=== PATIENT | male | born 1935 | race Two or more races ===

== ENCOUNTER 2018-07-28 18:33 | Emergency (ER) | payer MEDICARE, OTHER ==
[~2018-07-28] VITALS: Ht 170.2 cm; Wt 62.6 kg
[~2018-07-28 18:33] MED LIST: ASPIRIN EC325 MG ORAL; FAMOTIDINE10 MG ORAL; FAMOTIDINE20 MG ORAL; LEVOTHYROXINE100 MCG ORAL; LEVOTHYROXINE50 MCG ORAL; PLAVIX75 MG ORAL; PRAVASTATIN SOD80 M1 PO; UNOBMED
[2018-07-28] MEDS ORDERED: Mylanta II UD 30ml ORAL ONE (18:45)
--- NOTE | 2018-07-28 18:54 | Emergency Room Report ---
History of Present Illness General Chief Complaint: Chest Pain Source: Patient, Family Member Present Illness HPI Patient is an 82-year-old male brought in by EMS after increased right-sided chest discomfort. Patient a prior history of double bypass surgery done at [facility]. Patient had onset of symptoms after eating. He reported this improved after belching. Patient was noted to be hitting the right side of his chest due to discomfort. Patient had prior history of cardiac surgery at [facility]. He is not currently taking any anticoagulation. He had not been vomiting or having any diarrhea. He was noted to have some baseline difficulty with hearing. Patient states pain is currently gone. Allergies: Coded Allergies: No Known Allergies (Unverified , 11/09/12) Patient History Past Medical History: see triage record, CAD Past Surgical History: CABG Reviewed Nursing Documentation: PMH: Agreed; PSxH: Agreed Nursing Documentation-PMH Hx Cardiac Problems: Yes - HEART SURGERY 2011 Hx Hypertension: No - hyperlipidemia Hx Pacemaker: Yes Hx Cancer: No Hx Gastrointestinal Problems: Yes Hx Neurological Problems: No Review of Systems All Other Systems: negative except mentioned in HPI Physical Exam Vital Signs Date Time Temp Pulse Resp B/P (MAP) Pulse Ox O2 Delivery O2 Flow Rate FiO2 07/28/18 18:33 98.2 72 16 120/64 98 Room Air Sp02 EP Interpretation: reviewed, normal General Appearance: normal inspection, well appearing, no apparent distress, alert, GCS 15, non-toxic Head: atraumatic ENT: normal ENT inspection, hearing grossly normal, normal voice Neck: normal inspection, full range of motion, supple, no bony tend Respiratory: normal inspection, lungs clear, normal breath sounds, no respiratory distress, no retraction, no wheezing Cardiovascular #1: regular rate, rhythm, no edema Gastrointestinal: normal inspection, normal bowel sounds, non tender, soft, no guarding, no hernia Genitourinary: no CVA tenderness Musculoskeletal: normal inspection, back normal, normal range of motion Neurologic: normal inspection, alert, oriented x3, responsive, outside cutter hand III-XII nml as tested, speech normal Psychiatric: normal inspection, judgement/insight normal, mood/affect normal Skin: normal inspection, normal color, no rash Medical Decision Making Diagnostic Impression: Primary Impression: Chest pain Additional Impressions: Right upper lobe consolidation CAD (coronary artery disease) ER Course Patient presented for chest pain. Differential diagnosis included but was not limited to acute coronary syndrome, pulmonary embolism, pneumonia, aortic dissection, shingles, pneumothorax, aortic dissection, esophageal rupture, pericarditis. Because of complexity of patient's case laboratory testing and imaging studies were ordered. EKG interpreted by me showed normal sinus rhythm with a rate of [address] or T wave changes. Laboratory testing was unremarkable. Patient was noted to have prior history of coronary artery disease. D-dimer was noted to be positive. CT angiogram of the chest was ordered to evaluate for possible pulmonary embolism. CT of chest read by radiology showed no evidence of pulmonary embolism with right upper lobe inflammatory versus infection. Patient was given IV antibiotics. He was noted to have slightly elevated white blood count. Dr. Albert was contacted for [facility]. Labs Test 07/28/18 18:50 07/28/18 19:12 White Blood Count 12.5 K/UL (4.8-10.8) Red Blood Count 4.49 M/UL (4.70-6.10) Hemoglobin 14.6 G/DL (14.2-18.0) Hematocrit 43.3 % (42.0-52.0) Mean Corpuscular Volume 97 FL (80-99) Mean Corpuscular Hemoglobin 32.5 PG (27.0-31.0) Mean Corpuscular Hemoglobin Concent 33.7 G/DL (32.0-36.0) Red Cell Distribution Width 11.9 % (11.6-14.8) Platelet Count 201 K/UL (150-450) Mean Platelet Volume 4.6 FL (6.5-10.1) Neutrophils (%) (Auto) 70.2 % (45.0-75.0) Lymphocytes (%) (Auto) 15.9 % (20.0-45.0) Monocytes (%) (Auto) 7.1 % (1.0-10.0) Eosinophils (%) (Auto) 6.2 % (0.0-3.0) Basophils (%) (Auto) 0.6 % (0.0-2.0) Sodium Level 139 MMOL/L (136-145) Potassium Level 3.7 MMOL/L (3.5-5.1) Chloride Level 101 MMOL/L (98-107) Carbon Dioxide Level 32 MMOL/L (21-32) Anion Gap 7 mmol/L (5-15) Blood Urea Nitrogen 30 mg/dL (7-18) Creatinine 0.9 MG/DL (0.55-1.30) Estimat Glomerular Filtration Rate mL/min (>60) Glucose Level 105 MG/DL (74-106) Calcium Level 8.7 MG/DL (8.5-10.1) Total Bilirubin 0.3 MG/DL (0.2-1.0) Aspartate Amino Transf (AST/SGOT) 34 U/L (15-37) Alanine Aminotransferase (ALT/SGPT) 74 U/L (12-78) Alkaline Phosphatase 151 U/L (46-116) Total Creatine Kinase 45 U/L (26-308) Creatine Kinase MB 1.4 NG/ML (0.0-3.6) Creatine Kinase MB Relative Index 3.1 Troponin I 0.023 ng/mL (0.000-0.056) Pro-B-Type Natriuretic Peptide 164 pg/mL (0-125) Total Protein 6.8 G/DL (6.4-8.2) Albumin 3.2 G/DL (3.4-5.0) Globulin 3.6 g/dL Albumin/Globulin Ratio 0.9 (1.0-2.7) Lipase 275 U/L (73-393) D-Dimer 3.21 mg/L FEU (0.00-0.49) EKG Diagnostic Results Rate: bradycardiac Rhythm: NSR ST Segments: no acute changes Last Vital Signs Date Time Temp Pulse Resp B/P (MAP) Pulse Ox O2 Delivery O2 Flow Rate FiO2 07/28/18 18:33 98.2 72 16 120/64 98 Room Air Status: improved [facility] Condition: Stable Phuc Lopez MD Jul 28, 2018 18:54
[2018-07-28 19:06] VITALS: BP 124/68
[2018-07-28 19:25] LABS: BASOPHILS % (AUTO) 0.6 % (0.0-2.0); EOSINOPHILS % (AUTO) 6.2 % (0.0-3.0); HEMATOCRIT 43.3 % (42.0-52.0); HEMOGLOBIN 14.6 G/DL (14.2-18.0); LYMPHOCYTES % (AUTO) 15.9 % (20.0-45.0); MEAN CORPUSCULAR VOLUME 97 FL (80-99); MONOCYTES % (AUTO) 7.1 % (1.0-10.0); NEUTROPHILS % (AUTO) 70.2 % (45.0-75.0); PLATELET COUNT 201 K/UL (150-450); RED BLOOD COUNT 4.49 M/UL (4.70-6.10); RED CELL DISTRIBUTION WIDTH 11.9 % (11.6-14.8); WHITE BLOOD COUNT 12.5 K/UL (4.8-10.8)
[2018-07-28 19:31] LABS: ANION GAP 7 mmol/L (5-15); BLOOD UREA NITROGEN 30 mg/dL (7-18); CALCIUM 8.7 MG/DL (8.5-10.1); CARBON DIOXIDE 32 MMOL/L (21-32); CHLORIDE 101 MMOL/L (98-107); CREATININE 0.9 MG/DL (0.55-1.30); POTASSIUM 3.7 MMOL/L (3.5-5.1); SODIUM 139 MMOL/L (136-145)
[2018-07-28 19:45] LABS: ALANINE AMINOTRANSFERASE 74 U/L (12-78); ALBUMIN 3.2 G/DL (3.4-5.0); ALBUMIN/GLOBULIN RATIO 0.9 (1.0-2.7); ALKALINE PHOSPHATASE 151 U/L (46-116); ASPARTATE AMINO TRANSFERASE 34 U/L (15-37); BILIRUBIN,TOTAL 0.3 MG/DL (0.2-1.0); CKMB 1.4 NG/ML (0.0-3.6); CREATINE KINASE 45 U/L (26-308)
[2018-07-28 20:39] VITALS: BP 104/61
[2018-07-28] MEDS ORDERED: Isovue-370 150ml vial INJ PRN (20:45)
[2018-07-28] MEDS ORDERED: cefTRIAXone 1 GM in NS 55 ML IVPB ONE (21:45)
[2018-07-28 22:58] VITALS: BP 116/61
[2018-07-29 00:47] VITALS: BP 101/55
[2018-07-29 01:36] VITALS: BP 101/55
--- NOTE | 2018-07-29 09:34 | Diagnostic Imaging Report ---
ndication: Chest pain Technique: IV administration nonionic contrast. Spiral acquisitions obtained from the lung bases to the lung apices. Multiplanar and 3-D reconstructions were generated. Total dose length product 860.1 mGycm. CTDIvol(s) 23.9 mGy. Dose reduction achieved using automated exposure control Comparison: none Findings: There is some image degradation due to respiratory motion artifact. Small filling defects are seen at the orifice of the right superior segment lower lobe pulmonary artery and within a left upper lobe segmental branch. There may be one or more right sided basilar segment pulmonary emboli as well. No pulmonary artery dilatation or right ventricular dilatation demonstrated. The there is fusiform ectasia, bordering on aneurysmal dilatation of the ascending thoracic aorta, which measures up to 4.5 cm in diameter. No evidence of dissection. There is variant aortic arch anatomy, with common origin of the right brachiocephalic and left common carotid arteries. The descending thoracic aorta is normal in caliber as are the proximal upper abdominal visceral vessels. Motion artifact limits evaluation of the lung window images. No definite infiltrates, effusions, masses, nodules, or congestion. There is some apical parenchymal scarring on the right and some focal pleural thickening on the left. The heart is borderline enlarged. No pericardial effusion. There is evidence of prior CABG. No mediastinal or hilar mass or adenopathy. No axillary or chest wall mass or adenopathy. The included upper abdominal anatomy is unremarkable Impression: Positive for bilateral small pulmonary emboli as described. This represents a discrepancy from [facility] preliminary report. Critical value discrepant findings phoned to Dr. Avila at the time of interpretation, as well as communicated to [facility] via their website. 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
--- NOTE | 2018-07-29 14:07 | Diagnostic Imaging Report ---
Indication: Chest pain Technique: One view of the chest Comparison: 09/02/2015 Findings: Cardiac valve prosthesis and CABG clips again demonstrated. The lungs and pleural spaces are clear. The heart is borderline enlarged. Impression: No acute process Borderline cardiomegaly
--- NOTE | 2018-07-29 19:39 | Cardiology Report ---
APPROVED REPORT EKG Measurement Heart [id number] Sinus bradycardia with sinus arrhythmia Otherwise normal ECG
== END 2018-07-29 01:38 | disposition short-term general hospital (02) ==
LOC: EDBD 18:33 → EMR 19:10
DX: R07.9 Chest pain, unspecified (principal); I25.10 Atherosclerotic heart disease of native coronary artery without angina pectoris; E78.5 Hyperlipidemia, unspecified; Z95.0 Presence of cardiac pacemaker; Z95.1 Presence of aortocoronary bypass graft; R00.1 Bradycardia, unspecified; I26.99 Other pulmonary embolism without acute cor pulmonale
CPT/HCPCS: 36415; 71045; 71275; 80053; 82550; 82553; 83690; 83880; 84484; 85025; 85379; 93005; 96365; 99285; J0696; J7040; Q9967